=== PATIENT | female | born 1995 | race Caucasian/White ===

== ENCOUNTER 2017-11-12 03:15 | Emergency (ER) | payer OTHER ==
[~2017-11-12] VITALS: Ht 160 cm; Wt 72.6 kg
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
--- NOTE | 2017-11-12 03:16 | NUR ---
ER MD RESTREPO AT BEDSIDE FOR EVAL
[2017-11-12] MEDS ORDERED: LORAZEPAM 1 MG TABLET PO ONE (03:30)
[2017-11-12] MEDS ORDERED: LORAZEPAM 1 MG TABLET ONE (03:40)
[2017-11-12 03:56] VITALS: BP 127/81
--- NOTE | 2017-11-12 04:00 | NUR ---
VITALS STABLE. PT IS ABLE TO WALK WITH A STEADY GAIT. PLACED IN HAND CUFFS IN CUSTODY.
== END 2017-11-12 03:57 ==
LOC: ER 03:17
DX: S80.212A Abrasion, left knee, initial encounter (principal); S80.211A Abrasion, right knee, initial encounter; F41.9 Anxiety disorder, unspecified; F32.9 Major depressive disorder, single episode, unspecified; R00.0 Tachycardia, unspecified; Z59.0 Homelessness; W51.XXXA Accidental striking against or bumped into by another person, initial encounter; Y93.89 Activity, other specified; Y92.89 Other specified places as the place of occurrence of the external cause; Y99.8 Other external cause status
CPT/HCPCS: 99283; A4606; Z7610

== ENCOUNTER 2020-07-25 17:57 | Emergency (ER) | payer MEDICAID, OTHER ==
[~2020-07-25] VITALS: Ht 160 cm; Wt 81.6 kg
[2020-07-25] MEDS ORDERED: IV NS 0.9% 1,000 ML BAG IV ONE (18:30)
[2020-07-25 18:53] LABS: CALCIUM, SERUM 9.3 mg/dL (8.5-10.1); CREATININE 0.7 mg/dL (0.6-1.3); POTASSIUM 3.5 mmol/L (3.5-5.1)
--- NOTE | 2020-07-25 19:00 | NUR ---
US at bedside. Pt updated with plan of care. NO acute changes
[2020-07-25 19:27] LABS: BILIRUBIN,URINE SMALL (NEGATIVE); COLOR,URINE RED (YELLOW); LEUKOCYTE ESTERASE ,URINE TRACE (NEGATIVE); NITRITE, URINE POSITIVE (NEGATIVE); PROTEIN,URINE >=300 mg/dl (NEGATIVE); UGLUCOSE NEGATIVE (NEGATIVE)
[2020-07-25 19:31] LABS: ALBUMIN 4.3 g/dL (3.4-5.0); BILIRUBIN,DIRECT 0.2 mg/dL (0.0-0.2); BILIRUBIN,TOTAL 0.7 mg/dL (0.2-1.0); TOTAL PROTEIN, SERUM 8.3 g/dL (6.4-8.2)
[2020-07-25 19:31] LABS: BACTERIA,URINE 1+ /HPF (None Seen); RBC,URINE TOO NUMEROUS TO COUN /HPF (0-2); SQUAMOUS EPITHELIAL CELL,UR Few /HPF (None Seen); WBC,URINE 0-2 /HPF (0-3)
--- NOTE | 2020-07-25 20:01 | NUR ---
PA AT BEDSIDE SPEAKING TO PT.
[2020-07-25 20:02] LABS: BASOPHILS # (AUTO) 0.1 /CMM (0.0-0.2); BASOPHILS % (AUTO) 0.8 % (0.0-2.0); HEMATOCRIT 44 % (33-45); HEMOGLOBIN 14.6 g/dL (11.5-14.8); LYMPHOCYTES # (AUTO) 3.6 /CMM (0.8-4.8); LYMPHOCYTES % (AUTO) 25.5 % (20.0-44.0); MEAN CORPUSCULAR HGB CONC 33 g/dl (31.0-36.0); MEAN CORPUSCULAR VOLUME 91 fL (82-100); MONOCYTES # (AUTO) 1.4 /CMM (0.1-1.30); MONOCYTES % (AUTO) 9.7 % (2.0-12.0); NEUTROPHILS # (AUTO) 8.8 /CMM (1.8-8.9); PLATELET COUNT (AUTO) 355 /CMM (150-450); RED BLOOD CELL COUNT(AUTO) 4.82 MIL/uL (4.0-5.2); WHITE BLOOD COUNT (AUTO) 14.2 K/uL (4.3-11.0)
--- NOTE | 2020-07-25 20:06 | NUR ---
SENIOR LINUX ADMINISTRATOR AT BEDSIDE
[2020-07-25] MEDS ORDERED: ACETAMINOPHEN 325 MG TABLET ONE (20:52)
--- NOTE | 2020-07-25 21:03 | NUR ---
pt is medically stable for d/c. IV removed x2. Catheter intact and site benign. Pressure and 4x4 applied to site. No bleeding noted. Patient discharged to home in stable condition. Written and verbal after care instructions given. Patient verbalizes understanding of instruction.
[2020-07-25 21:05] VITALS: BP 131/68
[2020-07-25] MEDS ORDERED: ACETAMINOPHEN 325 MG TABLET PO ONE (21:30)
== END 2020-07-25 21:31 | disposition home or self-care (01) ==
LOC: ER 18:03
DX: O03.9 Complete or unspecified spontaneous abortion without complication (principal); F32.9 Major depressive disorder, single episode, unspecified; F41.9 Anxiety disorder, unspecified; Z3A.12 12 weeks gestation of pregnancy
CPT/HCPCS: 36415; 76805; 80048; 80076; 81001; 84702; 85025; 85730; 87086; 96360; 99284; J7030